=== PATIENT | male | born 1995 | race Two or more races ===

== ENCOUNTER 2019-09-22 09:47 | Emergency (ER) | payer MEDICAID ==
[~2019-09-22] VITALS: Ht 177.8 cm; Wt 72.0 kg
[2019-09-22 10:49] VITALS: BP 135/78
== END 2019-09-22 10:49 | disposition home or self-care (01) ==
LOC: ER 09:47
DX: R10.9 Unspecified abdominal pain (principal); R31.9 Hematuria, unspecified; R30.0 Dysuria; N50.82 Scrotal pain; R36.9 Urethral discharge, unspecified
CPT/HCPCS: 99281

== ENCOUNTER 2020-04-25 10:31 | Emergency (ER) | payer MEDICAID ==
[~2020-04-25] VITALS: Ht 175.3 cm; Wt 76.0 kg
[2020-04-25 10:35] VITALS: BP 127/61
[2020-04-25] MEDS ORDERED: AZITHROMYCIN 500 MG TABLET PO ONE (11:30)
[2020-04-25] MEDS ORDERED: CEFTRIAXONE SODIUM 250 MG/VIAL IM ONE (11:30)
[2020-04-25] MEDS ORDERED: LIDOCAINE HCL/PF 1% 10 MG/ML 5ML VIAL IJ ONE (11:30)
[2020-04-25 11:53] LABS: CLARITY URINE CLEAR (CLEAR); COLOR URINE YELLOW (YELLOW); KETONES URINE NEGATIVE (NEGATIVE); LEUKOCYTE ESTERASE URINE NEGATIVE (NEGATIVE); NITRITE URINE NEGATIVE (NEGATIVE); OCCULT BLOOD URINE NEGATIVE (NEGATIVE); PROTEIN URINE NEGATIVE (NEGATIVE); SPECIFIC GRAVITY URINE 1.022 (1.005-1.030); UROBILINOGEN URINE 0.2 E.U./dL (0.2-1.0)
== END 2020-04-25 12:01 | disposition home or self-care (01) ==
LOC: ER 10:43
DX: A63.8 Other specified predominantly sexually transmitted diseases (principal)
CPT/HCPCS: 81003; 96372; 99283; J0696; J3490